=== PATIENT | female | born 1955 | race Caucasian/White ===

== ENCOUNTER 2023-10-22 06:37 | Inpatient (IN) | payer MEDICARE, OTHER ==
[~2023-10-22] VITALS: Ht 172.7 cm; Wt 85.3 kg
[2023-10-22] MEDS ORDERED: LIDOCAINE 2%-EPI 1:100,000 30 ML VIAL ONE (06:47)
[2023-10-22] MEDS ORDERED: VANCOMYCIN 1 GM VIAL ONE (06:47)
[2023-10-22] MEDS ORDERED: ANESTHESIA TRAY IN PYXIS 1 EA TRAY MC ONE (06:47)
[2023-10-22] MEDS ORDERED: dexaMETHasone SOD PHOSPHATE 1 ML ONE (06:47)
[2023-10-22] MEDS ORDERED: ROCURONIUM BROMIDE 50 MG/5 ML ONE (07:22)
[2023-10-22] MEDS ORDERED: FENTANYL PF 250MCG/5ML AMPUL ONE (07:22)
[2023-10-22] MEDS ORDERED: LABETALOL HCL IV 100MG VIAL ONE (07:59)
[2023-10-22] MEDS ORDERED: OMEP20CA15 PO (10:52)
[2023-10-22] MEDS ORDERED: LISI10TA29 PO (10:52)
[2023-10-22] MEDS ORDERED: AMLO5TAB4 PO (10:52)
[2023-10-22] MEDS ORDERED: AMOX-430 PO (10:52)
[2023-10-22] MEDS ORDERED: SEMA0.25 SQ (10:52)
[2023-10-22] MEDS ORDERED: METF-440 PO (10:52)
[2023-10-22] MEDS ORDERED: TRAM50TA2 PO (10:52)
[2023-10-22] MEDS ORDERED: HYDROMORPHONE 1 MG/1 ML DISP.SYRIN IV PRN (12:00)
[2023-10-22] MEDS ORDERED: ONDANSETRON HCL/PF 4 MG/2 ML VIAL IV PRN (12:00)
[2023-10-22] MEDS ORDERED: IV NS 0.9% 1,000 ML IV PRN (12:00)
[2023-10-22] MEDS ORDERED: ACETAMINOPHEN 325 MG TABLET PO PRN (12:00)
== END 2023-10-22 14:49 | disposition home or self-care (01) | DRG 497 ==
LOC: DS 06:37 → MED 10:17
PROVIDERS: ADMIT Dentist Oral and Maxillofacial Surgery; ATTEND Dentist Oral and Maxillofacial Surgery
PROC: 0NPW04Z Removal of Internal Fixation Device from Facial Bone, Open Approach (ICD-10-PCS; principal; 2023-10-22)
PROC: 0NHV04Z Insertion of Internal Fixation Device into Left Mandible, Open Approach (ICD-10-PCS; 2023-10-22)
PROC: 0NHT04Z Insertion of Internal Fixation Device into Right Mandible, Open Approach (ICD-10-PCS; 2023-10-22)
PROC: 0NBV0ZX Excision of Left Mandible, Open Approach, Diagnostic (ICD-10-PCS; 2023-10-22)
PROC: 0NBT0ZX Excision of Right Mandible, Open Approach, Diagnostic (ICD-10-PCS; 2023-10-22)
DX: T84.218A Breakdown (mechanical) of internal fixation device of other bones, initial encounter (principal); M27.2 Inflammatory conditions of jaws; D16.4 Benign neoplasm of bones of skull and face; Y83.8 Other surgical procedures as the cause of abnormal reaction of the patient, or of later complication, without mention of misadventure at the time of the procedure; Y92.009 Unspecified place in unspecified non-institutional (private) residence as the place of occurrence of the external cause
CPT/HCPCS: 82962-TC; G0378; J0461; J0690; J1100; J2704; J3010; J3370; J3490

== ENCOUNTER 2024-04-13 06:01 | Inpatient (IN) | payer MEDICARE, OTHER ==
[~2024-04-13] VITALS: Ht 156 cm; Wt 81.9 kg
[~2024-04-13 06:01] MED LIST: AMLO5TAB4 PO; AMOX-430 PO; LISI10TA29 PO; METF-440 PO; OMEP20CA15 PO; SEMA0.25 SQ; TRAM50TA2 PO
[2024-04-13] MEDS ORDERED: VANCOMYCIN 1 GM VIAL ONE (06:39)
[2024-04-13] MEDS ORDERED: OXYMETAZOLINE HCL NASAL SPRAY 30 ML BOTTLE NS ONE (06:39)
[2024-04-13] MEDS ORDERED: ANESTHESIA TRAY IN PYXIS 1 EA TRAY MC ONE (06:39)
[2024-04-13] MEDS ORDERED: LIDOCAINE 2%-EPI 1:100,000 30 ML VIAL ONE (06:39)
[2024-04-13] MEDS ORDERED: dexaMETHasone SOD PHOSPHATE 1 ML ONE (06:39)
[2024-04-13] MEDS ORDERED: MIDAZOLAM HCL 2 MG/2ML VIAL ONE (06:54)
[2024-04-13] MEDS ORDERED: FENTANYL PF 100MCG/2ML AMPUL ONE (06:54)
[2024-04-13] MEDS ORDERED: HYDROMORPHONE 1 MG/1 ML DISP.SYRIN IV PRN (08:30)
[2024-04-13 09:35] VITALS: BP 139/57; TEMP 97.5; O2SAT 97
[2024-04-13] MEDS: IV NS 0.9% 1,000 ML IV PRN (09:40)
[2024-04-13] MEDS ORDERED: ONDANSETRON HCL/PF 4 MG/2 ML VIAL IVP PRN (10:00)
[2024-04-13] MEDS ORDERED: HYDROMORPHONE INJ 2 MG/ML DISP.SYRIN IV PRN (10:00)
[2024-04-13] MEDS ORDERED: ACETAMINOPHEN 325 MG TABLET PO PRN (10:00)
[2024-04-13] MEDS ORDERED: AMLO10TA4 PO (11:02)
[2024-04-13 13:30] VITALS: BP 139/57; TEMP 97.5; O2SAT 97
[2024-04-13 16:00] VITALS: BP 135/70; TEMP 98.4; O2SAT 99
[2024-04-13] MEDS: METFORMIN 500 MG TABLET PO SCH (17:55)
[2024-04-13] MEDS: AMLODIPINE BESYLATE 10 MG TABLET PO SCH (17:55)
[2024-04-13] MEDS: VANCOMYCIN 1 GM in IV D5W 250ml IV SCH (20:20)
[2024-04-13 20:33] VITALS: BP 135/83; TEMP 97.5; O2SAT 95
[2024-04-14 08:00] VITALS: BP_SYST 156; BP_SYST 170; BP_DIAS 65; BP_DIAS 78; TEMP 98.3; TEMP 98.4; O2SAT 96; O2SAT 97
[2024-04-14 08:01] VITALS: BP 156/78
[2024-04-14] MEDS: LISINOPRIL (10MG) 10 MG TABLET PO SCH (08:01)
== END 2024-04-14 09:00 | disposition home or self-care (01) | DRG 496 ==
LOC: DS 06:01 → MED 09:15
PROVIDERS: ADMIT Nurse Practitioner Acute Care; ATTEND Nurse Practitioner Acute Care
PROC: 0NPW04Z Removal of Internal Fixation Device from Facial Bone, Open Approach (ICD-10-PCS; principal; 2024-04-13)
PROC: 0N5T0ZZ Destruction of Right Mandible, Open Approach (ICD-10-PCS; 2024-04-13)
PROC: 0NUT07Z Supplement Right Mandible with Autologous Tissue Substitute, Open Approach (ICD-10-PCS; 2024-04-13)
PROC: 0NPW07Z Removal of Autologous Tissue Substitute from Facial Bone, Open Approach (ICD-10-PCS; 2024-04-13)
PROC: 0NST0ZZ Reposition Right Mandible, Open Approach (ICD-10-PCS; 2024-04-13)
PROC: 0NBV0ZZ Excision of Left Mandible, Open Approach (ICD-10-PCS; 2024-04-13)
DX: T84.69XA Infection and inflammatory reaction due to internal fixation device of other site, initial encounter (principal); D68.69 Other thrombophilia; T86.831 Bone graft failure; S02.69XK Fracture of mandible of other specified site, subsequent encounter for fracture with nonunion; T84.398A Other mechanical complication of other bone devices, implants and grafts, initial encounter; Y83.8 Other surgical procedures as the cause of abnormal reaction of the patient, or of later complication, without mention of misadventure at the time of the procedure; M27.2 Inflammatory conditions of jaws; E11.9 Type 2 diabetes mellitus without complications; I10 Essential (primary) hypertension; M89.38 Hypertrophy of bone, other site; K13.79 Other lesions of oral mucosa; Z87.891 Personal history of nicotine dependence; Y83.2 Surgical operation with anastomosis, bypass or graft as the cause of abnormal reaction of the patient, or of later complication, without mention of misadventure at the time of the procedure; E66.01 Morbid (severe) obesity due to excess calories; Y72.8 Miscellaneous otorhinolaryngological devices associated with adverse incidents, not elsewhere classified; Z68.33 Body mass index [BMI] 33.0-33.9, adult; Y92.009 Unspecified place in unspecified non-institutional (private) residence as the place of occurrence of the external cause
CPT/HCPCS: 71045-TC; 82962-TC; A4338; G0378; J0330; J1100; J2250; J2704; J3010; J3370; J3490; J7030; J7060